=== PATIENT | female | born 1955 | race Caucasian/White ===

== ENCOUNTER 2017-05-17 09:14 | Inpatient (IN) | payer MEDICARE, OTHER ==
[2017-05-17 11:30] LABS: ADD MAN DIFF? NO
[2017-05-17 11:34] LABS: BASOPHILS % 0.2 % (0.0-2.0); EOSINOPHILS % 0.9 % (0.0-7.0); HEMATOCRIT 38.3 % (37.0-47.0); LYMPHOCYTES # 1.6 10^3/ul (0.8-2.9); LYMPHOCYTES % 36.3 % (15.0-51.0); MEAN CORPUSCULAR HEMOGLOBIN 30.1 pg (29.0-33.0); MEAN CORPUSCULAR HGB CONC 33.9 g/dl (32.0-37.0); MEAN CORPUSCULAR VOLUME 88.7 fl (82.0-101.0); MONOCYTE # 0.3 10^3/ul (0.3-0.9); NEUTROPHIL # 2.4 10^3/ul (1.6-7.5); NEUTROPHILS % 55.4 % (39.0-77.0); PLATELET COUNT 124 10^3/UL (140-415); RED BLOOD COUNT 4.32 10^6/ul (4.20-5.40); RED CELL DISTRIBUTION WIDTH 12.3 % (11.5-14.5)
[2017-05-17 11:34] LABS: WHITE BLOOD COUNT 4.3 10^3/ul (4.8-10.8)
[2017-05-17 11:56] LABS: INR 1.03; PARTIAL THROMBOPLASTIN TIME 30.3 Sec (25.0-35.0); PROTIME 13.6 Sec (11.9-14.9); PT RATIO 1.1
[2017-05-17 12:00] LABS: ALANINE AMINOTRANSFERASE 55 IU/L (13-69); ALBUMIN 4.2 g/dl (3.3-4.9); ALKALINE PHOSPHATASE 100 IU/L (42-121); AMYLASE 97 U/L (11-123); ANION GAP 17 (8-16); ASPARTATE AMINO TRANSFERASE 49 IU/L (15-46); BILIRUBIN,INDIRECT 0.5 mg/dl (0-1.1); BILIRUBIN,TOTAL 0.5 mg/dl (0.2-1.3); BLOOD UREA NITROGEN 14 mg/dl (7-20); CALCIUM 9.2 mg/dl (8.4-10.2); CARBON DIOXIDE 26 mmol/L (21-31); CHLORIDE 104 mmol/L (97-110); CREATININE 0.57 mg/dl (0.44-1.00); GLUCOSE 134 mg/dl (70-220); LIPASE 173 U/L (23-300); POTASSIUM 4.2 mmol/L (3.5-5.1); SODIUM 143 mmol/L (135-144); TOTAL PROTEIN 7.2 g/dl (6.1-8.1)
[2017-05-17 12:26] LABS: TROPONIN-I < 0.012 ng/ml (0.00-0.12)
[2017-05-17] MEDS ORDERED: NITROGLYCERIN (SL) 0.4 MG TAB SL (12:30)
[2017-05-17] MEDS: ASPIRIN 325 MG TAB PO (12:36)
[2017-05-17 14:17] LABS: ADD UMIC NO; UR ASCORBIC ACID NEGATIVE (NEGATIVE); UR BILIRUBIN (Dip) NEGATIVE (NEGATIVE); UR BLOOD (Dip) NEGATIVE (NEGATIVE); UR CLARITY CLEAR (CLEAR); UR COLOR YELLOW (YELLOW); UR GLUCOSE (Dip) NEGATIVE (NEGATIVE); UR KETONES (Dip) NEGATIVE (NEGATIVE); UR LEUKOCYTE ESTERASE (Dip) NEGATIVE Leu/ul (NEGATIVE); UR NITRITE (Dip) NEGATIVE (NEGATIVE); UR SPECIFIC GRAVITY (Dip) 1.016 (1.003-1.030); UR TOTAL PROTEIN (Dip) NEGATIVE (NEGATIVE); UR UROBILINOGEN (Dip) 1+ mg/dL (NEGATIVE)
[2017-05-17] MEDS ORDERED: ACETAMINOPHEN 325 MG TAB PO (16:00)
[2017-05-17] MEDS ORDERED: ONDANSETRON 4 MG INJ IV (16:00)
[2017-05-17 17:14] LABS: THYROID STIMULATING HORMONE 0.763 MIU/L (0.465-4.680)
[2017-05-17 17:30] LABS: B-TYPE NATRIURETIC PEPTIDE 40 PG/ML (0-125)
[2017-05-17] MEDS ORDERED: GLUCOSE GEL 15 GRAM TUBE BUCCAL (17:30)
[2017-05-17] MEDS ORDERED: HYPOGLYCEMIA PROTOCOL when Glucose is <70 mg/dL or symptomatic <90 mg/dL. XX (17:30)
[2017-05-17] MEDS ORDERED: GLUCOSE GEL 15 GRAM TUBE PO ×2 (17:30)
[2017-05-17] MEDS ORDERED: Discontinue current oral sulfonylureas (glyburide, glipizide, and/or glimepiride) prior to XX (17:30)
[2017-05-17] MEDS ORDERED: GLUCAGON 1 MG INJ IM (17:30)
[2017-05-17] MEDS ORDERED: DEXTROSE 50% 50 ML SYRINGE IV ×2 (17:30)
[2017-05-17 17:31] LABS: CHOLESTEROL 140 mg/dl (100-200)
[2017-05-17 17:31] LABS: CHOL/HDL RATIO 3.5 RATIO; HDL CHOLESTEROL 39 mg/dl (35-98); LDL CHOLESTEROL,CALCULATED 73 mg/dl; TRIGLYCERIDES 142 mg/dl (0-149)
[2017-05-17 17:33] LABS: HEMOGLOBIN A1C 7.9 % (0-5.9)
[2017-05-17 19:59] LABS: TROPONIN-I < 0.012 ng/ml (0.00-0.12)
[2017-05-18 02:43] LABS: TROPONIN-I < 0.012 ng/ml (0.00-0.12)
[2017-05-18 05:30] LABS: ADD MAN DIFF? NO
[2017-05-18 05:33] LABS: BASOPHILS % 0.6 % (0.0-2.0); EOSINOPHILS # 0.1 10^3/ul (0.0-0.5); HEMATOCRIT 37.8 % (37.0-47.0); HEMOGLOBIN 12.7 g/dl (12.0-16.0); MEAN CORPUSCULAR HGB CONC 33.6 g/dl (32.0-37.0); MEAN CORPUSCULAR VOLUME 89.2 fl (82.0-101.0); MONOCYTE # 0.4 10^3/ul (0.3-0.9); MONOCYTES % 7.7 % (0.0-11.0); NEUTROPHIL # 2.5 10^3/ul (1.6-7.5); NEUTROPHILS % 50.5 % (39.0-77.0); PLATELET COUNT 125 10^3/UL (140-415); RED BLOOD COUNT 4.24 10^6/ul (4.20-5.40); RED CELL DISTRIBUTION WIDTH 12.4 % (11.5-14.5)
[2017-05-18 05:33] LABS: WHITE BLOOD COUNT 4.9 10^3/ul (4.8-10.8)
[2017-05-18 06:01] LABS: CHOL/HDL RATIO 3.7 RATIO; HDL CHOLESTEROL 37 mg/dl (35-98); LDL CHOLESTEROL,CALCULATED 73 mg/dl; TRIGLYCERIDES 148 mg/dl (0-149)
[2017-05-18 06:01] LABS: CHOLESTEROL 140 mg/dl (100-200)
[2017-05-18 06:04] LABS: ANION GAP 13 (8-16); BLOOD UREA NITROGEN 18 mg/dl (7-20); CALCIUM 9.3 mg/dl (8.4-10.2); CARBON DIOXIDE 27 mmol/L (21-31); CHLORIDE 106 mmol/L (97-110); CREATININE 0.64 mg/dl (0.44-1.00); GLUCOSE 143 mg/dl (70-220); POTASSIUM 3.9 mmol/L (3.5-5.1); SODIUM 142 mmol/L (135-144)
[2017-05-18 06:27] LABS: TROPONIN-I < 0.012 ng/ml (0.00-0.12)
[2017-05-18] MEDS: ASPIRIN (EC) 81 MG TAB PO ×2 (09:00→09:13)
[2017-05-18] MEDS: INFLUENZA VIRUS VACCINE 0.5 ML SYG IM* (11:00)
[2017-05-18] MEDS: INSULIN ASPART [NOVOLOG] 3 ML PEN SC ×3 (11:45→21:15)
[2017-05-18 12:12] LABS: HEMOGLOBIN A1C 7.8 % (0-5.9)
[2017-05-18] MEDS: AMLODIPINE 10 MG TAB PO (13:39)
[2017-05-19 05:48] LABS: ANION GAP 16 (8-16); BLOOD UREA NITROGEN 18 mg/dl (7-20); CALCIUM 9.2 mg/dl (8.4-10.2); CARBON DIOXIDE 26 mmol/L (21-31); CHLORIDE 105 mmol/L (97-110); CREATININE 0.63 mg/dl (0.44-1.00); GLUCOSE 151 mg/dl (70-220); POTASSIUM 4.2 mmol/L (3.5-5.1); SODIUM 143 mmol/L (135-144)
[2017-05-19] MEDS: INSULIN ASPART [NOVOLOG] 3 ML PEN SC ×3 (07:27→17:35)
[2017-05-19] MEDS: AMLODIPINE 10 MG TAB PO (09:23)
[2017-05-19] MEDS: ASPIRIN (EC) 81 MG TAB PO (09:23)
[2017-05-20] MEDS ORDERED: LINAGLIPTIN 5 MG TABLET PO (09:00)
== END 2017-05-19 19:15 | disposition home or self-care (01) | DRG 69 ==
LOC: E/R 09:14 → MS3 20:06
PROVIDERS: Internal Medicine
DX: G45.9 Transient cerebral ischemic attack, unspecified (principal); M50.20 Other cervical disc displacement, unspecified cervical region; I10 Essential (primary) hypertension; E11.9 Type 2 diabetes mellitus without complications; E78.5 Hyperlipidemia, unspecified; R07.89 Other chest pain; R42 Dizziness and giddiness; R20.2 Paresthesia of skin; Z79.4 Long term (current) use of insulin; Z79.82 Long term (current) use of aspirin
CPT/HCPCS: 36415; 70450; 70551; 71045; 80048; 80053; 80061; 81003; 82150; 82962; 83036; 83690; 83880; 84443; 84484; 85025; 85610; 85730; 90686; 93005; 93306; 93971; 99285-25